=== PATIENT | male | born 1950 | race Caucasian/White ===

== ENCOUNTER 2017-09-04 06:05 | Day surgery (SDC) | payer MEDICARE ==
[~2017-09-04] VITALS: Ht 180.3 cm; Wt 125.2 kg
[~2017-09-04 06:05] MED LIST: FENO145T32 PO; FLUT1DIS3 INH; FURO40TA6 PO; GABA100C PO; HYDR50TA3 PO; LACT1CAP40 PO; LOSA1TAB19 PO; LOSA25TA5 PO; OMEP-110 PO; POTA99TA3 PO; PRAV40TA2 PO; RIVA20TA PO; SERT25TA PO; SOTA120T26 PO; TIOT18CA INH
[2017-09-04 06:59] VITALS: BP 110/77
[2017-09-04] MEDS ORDERED: LACTATED RINGERS 1,000 ML IV SCH (07:04)
[2017-09-04] MEDS ORDERED: LIDOCAINE-MPF 1%, 2ML ONE (07:10)
[2017-09-04] MEDS ORDERED: LIDOCAINE 1%, 2ML SQ PRN (07:30)
[2017-09-04] MEDS ORDERED: ALBUTEROL/IPRATROPIUM 2.5MG/0.5MG, 3 ML ONE (07:42)
[2017-09-04] MEDS ORDERED: PROPOFOL 10 MG/ML, 20ML ONE (07:43)
[2017-09-04] MEDS ORDERED: FENTANYL PF 100 MCG/2ML ONE (07:43)
[2017-09-04] MEDS ORDERED: MEPERIDINE/PF 25MG/0.5ML IVPush PRN (08:30)
[2017-09-04] MEDS ORDERED: ONDANSETRON 2MG/ML, 2ML IVPush PRN (08:30)
[2017-09-04] MEDS ORDERED: PROMETHAZINE 12.5 MG SUPP PR PRN (08:30)
[2017-09-04] MEDS ORDERED: FENTANYL PF 100 MCG/2ML IV PRN (08:30)
[2017-09-04] MEDS ORDERED: ALBUTEROL/IPRATROPIUM 2.5MG/0.5MG, 3 ML NPPB PRN (08:30)
[2017-09-04] MEDS ORDERED: hydrALAzine 20 MG/ML, 1ML IV PRN (08:30)
[2017-09-04] MEDS ORDERED: OXYcodone 5 MG/5 ML ORAL.SOL UDC PO PRN (08:30)
[2017-09-04] MEDS ORDERED: ACETAMINOPHEN 325 MG TABLET PO PRN (08:30)
== END 2017-09-04 09:25 ==
LOC: OUT 06:05
PROVIDERS: ATTEND Internal Medicine
DX: K31.7 Polyp of stomach and duodenum (principal); K29.60 Other gastritis without bleeding; K21.9 Gastro-esophageal reflux disease without esophagitis; K22.70 Barrett's esophagus without dysplasia; K44.9 Diaphragmatic hernia without obstruction or gangrene; I10 Essential (primary) hypertension; E78.5 Hyperlipidemia, unspecified; E66.01 Morbid (severe) obesity due to excess calories; G47.33 Obstructive sleep apnea (adult) (pediatric); J44.9 Chronic obstructive pulmonary disease, unspecified; Z86.010 Personal history of colon polyps; Z98.890 Other specified postprocedural states; Z90.49 Acquired absence of other specified parts of digestive tract; Z88.8 Allergy status to other drugs, medicaments and biological substances
CPT/HCPCS: 45380; 71045; 88305; 93005; 94640; J2704; J3010; J7120

== ENCOUNTER → 2017-11-29 | Outpatient (CLI) | payer MEDICARE | END | disposition home or self-care (01) | LOC: CFH 08:26 | PROVIDERS: ATTEND Internal Medicine Critical Care Medicine | DX: R94.2 Abnormal results of pulmonary function studies (principal); R59.1 Generalized enlarged lymph nodes | CPT/HCPCS: 71250 ==

== ENCOUNTER → 2017-12-20 | Outpatient (CLI) | payer MEDICARE ==
[~2017-12-20] MED LIST changes: +ALBU8.5H8 INH
[2017-12-20 08:55] LABS: ALANINE AMINOTRANSFERASE 21 U/L (12-78); ALBUMIN 3.6 g/dL (3.4-5.0); ANION GAP 5 mmol/L (5-15); CALCIUM 9.4 mg/dL (8.5-10.1); CHLORIDE 108 mmol/L (98-107); CREATININE 1.19 mg/dL (0.7-1.3)
[2017-12-20 08:58] LABS: ALKALINE PHOSPHATASE 43 U/L (45-117); BILIRUBIN,TOTAL 1.4 mg/dL (0.2-1.0); TOTAL PROTEIN 7.4 g/dL (6.4-8.2)
== END | disposition home or self-care (01) ==
LOC: STAR 07:44
PROVIDERS: ATTEND Internal Medicine Critical Care Medicine
DX: Z01.818 Encounter for other preprocedural examination (principal); R94.2 Abnormal results of pulmonary function studies
CPT/HCPCS: 36415; 80053

== ENCOUNTER → 2017-12-26 | Outpatient (CLI) | payer MEDICARE ==
[~2017-12-26] MED LIST changes: +OMNIPAQUE 350 MG/ML, 100ML BOTTLE ONE
== END | disposition home or self-care (01) ==
LOC: CFH 08:56
PROVIDERS: ATTEND Internal Medicine Critical Care Medicine
DX: J84.9 Interstitial pulmonary disease, unspecified (principal); R91.1 Solitary pulmonary nodule; R59.0 Localized enlarged lymph nodes; R94.2 Abnormal results of pulmonary function studies
CPT/HCPCS: 71260; Q9967

== ENCOUNTER 2017-12-27 08:01 | Day surgery (SDC) | payer MEDICARE ==
[~2017-12-27] VITALS: Ht 177.8 cm; Wt 118.0 kg
[~2017-12-27 08:01] MED LIST changes: -OMNIPAQUE 350 MG/ML, 100ML BOTTLE ONE
[2017-12-27] MEDS ORDERED: LACTATED RINGERS 1,000 ML IV SCH (08:20)
[2017-12-27 08:44] VITALS: BP 104/72
[2017-12-27] MEDS ORDERED: FENTANYL PF 250 MCG/5ML ONE (10:05)
[2017-12-27] MEDS ORDERED: HYDROmorphone 1 MG/ML, 1ML IV PRN (10:30)
[2017-12-27] MEDS ORDERED: ACETAMINOPHEN 325 MG TABLET PO PRN (10:30)
[2017-12-27] MEDS ORDERED: FENTANYL PF 100 MCG/2ML IV PRN (10:30)
[2017-12-27] MEDS ORDERED: OXYcodone 5 MG/5 ML ORAL.SOL UDC PO PRN (10:30)
[2017-12-27] MEDS ORDERED: MEPERIDINE/PF 25MG/0.5ML IVPush PRN (10:30)
[2017-12-27] MEDS ORDERED: ONDANSETRON ODT 8 MG PO PRN (10:30)
== END 2017-12-27 13:00 | disposition home or self-care (01) ==
LOC: OUT 08:01
PROVIDERS: ATTEND Internal Medicine Critical Care Medicine
DX: J98.4 Other disorders of lung (principal); J44.9 Chronic obstructive pulmonary disease, unspecified; G47.33 Obstructive sleep apnea (adult) (pediatric); I10 Essential (primary) hypertension; Z98.890 Other specified postprocedural states; Z88.8 Allergy status to other drugs, medicaments and biological substances
CPT/HCPCS: 31652; 88172; 88173; 88305; J3010; 31629

== ENCOUNTER → 2018-04-15 | Outpatient (CLI) | payer MEDICARE ==
[~2018-04-15] MED LIST changes: -LOSA25TA5 PO; +LOSA25TA6 PO
== END | disposition home or self-care (01) ==
LOC: CFH 08:11
PROVIDERS: ATTEND Internal Medicine Critical Care Medicine
DX: J84.9 Interstitial pulmonary disease, unspecified (principal); R91.1 Solitary pulmonary nodule
CPT/HCPCS: 71250

== ENCOUNTER 2018-04-22 06:58 | Day surgery (SDC) | payer MEDICARE ==
[~2018-04-22] VITALS: Ht 180.3 cm; Wt 123.1 kg
[2018-04-22] MEDS ORDERED: SODIUM CHLORIDE 0.9% 1,000 ML IV SCH (07:31)
[2018-04-22 07:33] VITALS: BP 122/79
[2018-04-22] MEDS ORDERED: MIDAZOLAM 1 MG/ML, 5ML ONE (09:10)
[2018-04-22] MEDS ORDERED: FENTANYL PF 100 MCG/2ML ONE ×2 (09:10)
[2018-04-22] MEDS ORDERED: FLUMAZENIL 0.1 MG/1 ML, 5ML ONE (09:10)
[2018-04-22] MEDS ORDERED: NALOXONE 1 MG/ML, 2ML ONE (09:11)
== END 2018-04-22 10:45 | disposition home or self-care (01) ==
LOC: OUT 06:58
PROVIDERS: ATTEND Nurse Practitioner Family
DX: J98.4 Other disorders of lung (principal); R91.1 Solitary pulmonary nodule; I48.91 Unspecified atrial fibrillation; I10 Essential (primary) hypertension; J44.9 Chronic obstructive pulmonary disease, unspecified; F19.90 Other psychoactive substance use, unspecified, uncomplicated
CPT/HCPCS: 32405; 77012; J2250; J3010; J7030; J2310

== ENCOUNTER → 2018-05-02 | Outpatient (CLI) | payer MEDICARE | END | disposition home or self-care (01) | LOC: PETCFH 13:01 | PROVIDERS: ATTEND Internal Medicine Critical Care Medicine | DX: R91.1 Solitary pulmonary nodule (principal) | CPT/HCPCS: 78815; A9552 ==

== ENCOUNTER → 2018-05-09 | Outpatient (CLI) | payer MEDICARE ==
[~2018-05-09] MED LIST changes: +GADOBUTROL 10 MMOL/10 ML PFS ONE
== END | disposition home or self-care (01) ==
LOC: RAD 08:35
PROVIDERS: ATTEND Internal Medicine Critical Care Medicine
DX: I67.82 Cerebral ischemia (principal); R91.1 Solitary pulmonary nodule
CPT/HCPCS: 70553; A9585

== ENCOUNTER 2018-05-28 08:00 | Inpatient (IN) | payer MEDICARE ==
[2018-05-27 11:09] LABS: BASOPHILS # (AUTO) 0.03 x10^3/uL (0-0.1); BASOPHILS % (AUTO) 1 % (0-1); EOSINOPHILS # (AUTO) 0.13 x10^3/uL (0-0.4); EOSINOPHILS % (AUTO) 2 % (1-7); LYMPHOCYTES # (AUTO) 1.19 x10^3/uL (1-3.4); LYMPHOCYTES % (AUTO) 20 % (22-44); MD NO; MEAN CORPUSCULAR HEMOGLOBIN 32.1 pg (27.5-34.5); MEAN CORPUSCULAR HGB CONC 33.4 g/dL (33.2-36.2); MEAN CORPUSCULAR VOLUME 96.1 fL (81-97); MEAN PLATELET VOLUME 8.7 fL (7.4-10.4); MONOCYTES # (AUTO) 0.66 x10^3/uL (0.2-0.8); MONOCYTES % (AUTO) 11 % (2-9); NEUTROPHILS # (AUTO) 4.02 x10^3/uL (1.8-6.8); NEUTROPHILS % (AUTO) 67 % (42-75); PLATELET COUNT 132 x10^3/uL (130-400); RED BLOOD COUNT 4.91 x10^6/uL (4.38-5.82); RED CELL DISTRIBUTION WIDTH 14.6 % (9.4-14.8)
[2018-05-27 11:20] LABS: ALANINE AMINOTRANSFERASE 19 U/L (12-78); ANION GAP 4 mmol/L (5-15); CALCIUM 9.3 mg/dL (8.5-10.1); CHLORIDE 107 mmol/L (98-107)
[2018-05-27 11:23] LABS: ALKALINE PHOSPHATASE 35 U/L (45-117); BILIRUBIN,TOTAL 1.8 mg/dL (0.2-1.0); CREATININE 1.26 mg/dL (0.7-1.3); TOTAL PROTEIN 7.5 g/dL (6.4-8.2)
[~2018-05-28] VITALS: Ht 180.3 cm; Wt 122.6 kg
[~2018-05-28 08:00] MED LIST changes: +BUPIVACAINE/PF-EPI 0.5% 1:200K ONE; +FLUT9.9S NS; -GADOBUTROL 10 MMOL/10 ML PFS ONE; +TOBR5DRO49 LEFT EAR
[2018-05-28] MEDS ORDERED: LACTATED RINGERS 1,000 ML IV SCH ×2 (08:21→12:01)
[2018-05-28] MEDS ORDERED: ACETAMINOPHEN 500 MG TABLET PO ONE (08:30)
[2018-05-28] MEDS ORDERED: GABAPENTIN 300 MG CAPSULE PO ONE (08:30)
[2018-05-28 08:44] VITALS: BP 129/69
[2018-05-28] MEDS ORDERED: FENTANYL PF 250 MCG/5ML ONE (10:17)
[2018-05-28] MEDS ORDERED: NEOSTIGMINE 1 MG/ML, 10ML ONE (10:18)
[2018-05-28] MEDS ORDERED: DEXAMETHASONE 4 MG/ML, 1ML ONE (10:18)
[2018-05-28] MEDS ORDERED: PROPOFOL 10 MG/ML, 20ML ONE (10:18)
[2018-05-28] MEDS ORDERED: ONDANSETRON 2MG/ML, 2ML ONE (10:18)
[2018-05-28] MEDS ORDERED: ROCURONIUM 10MG/ML,5ML ONE (10:18)
[2018-05-28] MEDS ORDERED: CEFAZOLIN 1,000 MG ONE ×2 (10:18→11:21)
[2018-05-28] MEDS ORDERED: GLYCOPYRROLATE 0.2MG/1ML, 5ML ONE (10:20)
[2018-05-28] MEDS ORDERED: FENTANYL PF 100 MCG/2ML IV PRN (11:30)
[2018-05-28] MEDS ORDERED: PROMETHAZINE 25 MG SUPP PR PRN (11:30)
[2018-05-28] MEDS ORDERED: OXYcodone 5 MG/5 ML ORAL.SOL UDC PO PRN (11:30)
[2018-05-28] MEDS ORDERED: LABETALOL 5MG/ML, 20ML IV PRN (11:30)
[2018-05-28] MEDS ORDERED: MEPERIDINE/PF 25MG/0.5ML IVPush PRN (11:30)
[2018-05-28] MEDS ORDERED: HYDROmorphone 1 MG/ML, 1ML IV PRN (11:30)
[2018-05-28] MEDS ORDERED: PROMETHAZINE 25 MG/ML, 1ML IV PRN (11:30)
[2018-05-28] MEDS ORDERED: PROMETHAZINE 12.5 MG SUPP PR PRN (11:30)
[2018-05-28] MEDS ORDERED: ONDANSETRON ODT 8 MG PO PRN (11:30)
[2018-05-28] MEDS ORDERED: MORPHINE SULFATE 4 MG/ML, 1ML IVPush PRN (11:30)
[2018-05-28] MEDS ORDERED: ONDANSETRON 2MG/ML, 2ML IV PRN (11:30)
[2018-05-28] MEDS ORDERED: hydrALAzine 20 MG/ML, 1ML IV PRN (11:30)
[2018-05-28] MEDS ORDERED: PROMETHAZINE 25 MG/ML, 1ML IM PRN ×2 (11:30)
[2018-05-28] MEDS ORDERED: SUGAMMADEX 200 MG/2 ML IVPush ONE (11:41)
[2018-05-28] MEDS ORDERED: FENTANYL PF 100 MCG/2ML ONE (12:00)
[2018-05-28] MEDS ORDERED: OXYcodone 5 MG/5 ML ORAL.SOL UDC ONE (12:29)
[2018-05-28] MEDS ORDERED: DIPHENHYDRAMINE 25 MG CAPSULE PO PRN (12:30)
[2018-05-28] MEDS ORDERED: FLUTICASONE NASAL SPRAY 16GM NAS PRN (12:30)
[2018-05-28] MEDS ORDERED: hydrALAzine 20 MG/ML, 1ML IVPush PRN (12:30)
[2018-05-28] MEDS: OMEPRAZOLE 20 MG CAPSULE.DR PO SCH (12:30)
[2018-05-28] MEDS ORDERED: DIPHENHYDRAMINE 50 MG/ML, 1ML IVPush PRN (12:30)
[2018-05-28] MEDS ORDERED: morphine SULFATE 10 MG/ML, 1ML IVPush PRN (12:30)
[2018-05-28] MEDS ORDERED: TOBRAMYCIN EACHEYE SCH (12:30)
[2018-05-28] MEDS: HYDROcodone/APAP 5/325 TABLET PO PRN ×2 (16:18→21:00)
[2018-05-28 19:41] VITALS: BP 105/56
[2018-05-28] MEDS: SOTALOL 120MG TABLET PO SCH (19:48)
[2018-05-28] MEDS ORDERED: TOBRAMYCIN OPHTH 5ML OTIC PRN (21:00)
[2018-05-28] MEDS ORDERED: PRAVASTATIN 40 MG TABLET PO SCH (21:00)
[2018-05-28 23:53] VITALS: BP 132/79
[2018-05-29] MEDS: HYDROcodone/APAP 5/325 TABLET PO PRN ×3 (01:08→12:03)
[2018-05-29 03:59] VITALS: BP 126/84
[2018-05-29 06:38] LABS: ANION GAP 7 mmol/L (5-15); CALCIUM 9.2 mg/dL (8.5-10.1); CHLORIDE 104 mmol/L (98-107)
[2018-05-29 06:41] VITALS: BP 143/79
[2018-05-29 06:41] LABS: CREATININE 1.16 mg/dL (0.7-1.3)
[2018-05-29 06:52] LABS: BASOPHILS # (AUTO) 0.04 x10^3/uL (0-0.1); BASOPHILS % (AUTO) 1 % (0-1); EOSINOPHILS # (AUTO) 0.15 x10^3/uL (0-0.4); EOSINOPHILS % (AUTO) 2 % (1-7); LYMPHOCYTES # (AUTO) 1.42 x10^3/uL (1-3.4); LYMPHOCYTES % (AUTO) 20 % (22-44); MD NO; MEAN CORPUSCULAR HEMOGLOBIN 31.6 pg (27.5-34.5); MEAN CORPUSCULAR HGB CONC 32.8 g/dL (33.2-36.2); MEAN CORPUSCULAR VOLUME 96.6 fL (81-97); MEAN PLATELET VOLUME 9.3 fL (7.4-10.4); MONOCYTES # (AUTO) 0.74 x10^3/uL (0.2-0.8); MONOCYTES % (AUTO) 10 % (2-9); NEUTROPHILS # (AUTO) 4.79 x10^3/uL (1.8-6.8); NEUTROPHILS % (AUTO) 67 % (42-75); PLATELET COUNT 127 x10^3/uL (130-400); RED BLOOD COUNT 5.07 x10^6/uL (4.38-5.82); RED CELL DISTRIBUTION WIDTH 15.1 % (9.4-14.8)
[2018-05-29] MEDS: SOTALOL 120MG TABLET PO SCH (07:45)
[2018-05-29] MEDS: OMEPRAZOLE 20 MG CAPSULE.DR PO SCH (07:53)
[2018-05-29] MEDS ORDERED: ENOXAPARIN 40 MG/0.4 ML SQ SCH (09:00)
[2018-05-29] MEDS ORDERED: FUROSEMIDE 40 MG TABLET PO SCH (09:00)
[2018-05-29] MEDS ORDERED: LOSARTAN 25MG TABLET PO SCH (09:00)
[2018-05-29] MEDS ORDERED: TEMPLATE NON-FORMULARY MED. (Potassium Gluconate** 595 MG) PO SCH (09:00)
[2018-05-29] MEDS ORDERED: FENOFIBRATE 145 MG TABLET PO SCH (09:00)
[2018-05-29 13:35] VITALS: BP 147/84
[2018-05-29] MEDS ORDERED: HYDR-3240 PO (14:17)
== END 2018-05-29 14:30 | disposition home or self-care (01) | DRG 826 ==
LOC: ORIP 08:00 → 4NOR 13:38 → DCLOUNGE 05-29 12:10
PROVIDERS: ADMIT Thoracic Surgery (Cardiothoracic Vascular Surgery); ATTEND Thoracic Surgery (Cardiothoracic Vascular Surgery)
PROC: 5A09357 Assistance with Respiratory Ventilation, Less than 24 Consecutive Hours, Continuous Positive Airway Pressure (ICD-10-PCS; 2018-05-28)
PROC: 0BBF4ZZ Excision of Right Lower Lung Lobe, Percutaneous Endoscopic Approach (ICD-10-PCS; principal; 2018-05-28 10:30)
DX: C7A.8 Other malignant neuroendocrine tumors (principal); J96.21 Acute and chronic respiratory failure with hypoxia; I48.92 Unspecified atrial flutter; F17.200 Nicotine dependence, unspecified, uncomplicated; I48.91 Unspecified atrial fibrillation; K21.9 Gastro-esophageal reflux disease without esophagitis; I11.9 Hypertensive heart disease without heart failure; G47.30 Sleep apnea, unspecified; E78.00 Pure hypercholesterolemia, unspecified; Z90.49 Acquired absence of other specified parts of digestive tract; Z98.52 Vasectomy status; Z88.8 Allergy status to other drugs, medicaments and biological substances; Z82.3 Family history of stroke; Z82.49 Family history of ischemic heart disease and other diseases of the circulatory system
CPT/HCPCS: 36415; 71045; 80048; 80053; 85025; 86850; 86900; 88309; 88341; 88342; 88360; 93005; C1729; G0378; J0690; J1100; J1650; J2405; J2704; J2710; J3010; J3490; J7120

== ENCOUNTER 2018-12-10 09:41 | Outpatient (CLI) | payer MEDICARE ==
[~2018-12-10 09:41] MED LIST changes: -BUPIVACAINE/PF-EPI 0.5% 1:200K ONE; +HYDR-3240 PO; +LOSA25TA25 PO; -LOSA25TA6 PO
== END 2018-12-10 23:59 | disposition home or self-care (01) ==
LOC: PETCFH 09:41
PROVIDERS: ATTEND Internal Medicine Medical Oncology
DX: C34.90 Malignant neoplasm of unspecified part of unspecified bronchus or lung (principal); R59.0 Localized enlarged lymph nodes
CPT/HCPCS: 78815; A9552

== ENCOUNTER → 2018-12-24 | Outpatient (CLI) | payer MEDICARE | END | disposition home or self-care (01) | LOC: ROC 08:08 | PROVIDERS: ATTEND Radiology Radiation Oncology | DX: C34.91 Malignant neoplasm of unspecified part of right bronchus or lung (principal) | CPT/HCPCS: G0463 ==

== ENCOUNTER 2019-01-16 09:54 | Outpatient (CLI) | payer MEDICARE ==
[2019-01-16 11:30] LABS: CHLORIDE 108 mmol/L (98-107)
[2019-01-16 11:38] LABS: ALANINE AMINOTRANSFERASE 21 U/L (12-78); ALKALINE PHOSPHATASE 47 U/L (45-117); ANION GAP 3 mmol/L (5-15); CALCIUM 9.8 mg/dL (8.5-10.1); CREATININE 1.22 mg/dL (0.7-1.3); TOTAL PROTEIN 7.5 g/dL (6.4-8.2)
[2019-01-16] MEDS ORDERED: CIPR500T3 PO (13:27)
[2019-01-16] MEDS ORDERED: SERT50TA28 PO (13:27)
== END 2019-01-16 23:59 | disposition home or self-care (01) ==
LOC: STAR 09:54
PROVIDERS: ATTEND Internal Medicine
DX: Z01.818 Encounter for other preprocedural examination (principal); C7A.1 Malignant poorly differentiated neuroendocrine tumors; Z88.8 Allergy status to other drugs, medicaments and biological substances; I48.91 Unspecified atrial fibrillation; I45.10 Unspecified right bundle-branch block
CPT/HCPCS: 36415; 80053; 93005

== ENCOUNTER 2019-01-21 07:50 | Day surgery (SDC) | payer MEDICARE ==
[~2019-01-21] VITALS: Ht 180.3 cm; Wt 113.6 kg
[2019-01-21 09:03] VITALS: BP 94/68
== END 2019-01-21 14:00 | disposition home or self-care (01) ==
LOC: OUT 07:50
PROVIDERS: ATTEND Internal Medicine
DX: C7A.1 Malignant poorly differentiated neuroendocrine tumors (principal); I48.2 Chronic atrial fibrillation; G47.33 Obstructive sleep apnea (adult) (pediatric); J44.9 Chronic obstructive pulmonary disease, unspecified; I10 Essential (primary) hypertension; Z88.1 Allergy status to other antibiotic agents; Z88.8 Allergy status to other drugs, medicaments and biological substances; Z79.01 Long term (current) use of anticoagulants
CPT/HCPCS: 31652; 71045; 88172; 88173; 88305; 88341; 88342; 88360; J0330; J2370; J2405; J2704; J3010; J7120; 31625

== ENCOUNTER 2019-01-26 14:32 | Outpatient (CLI) | payer MEDICARE | END 2019-01-26 23:59 | disposition home or self-care (01) | LOC: CFH 14:32 | PROVIDERS: ATTEND Radiology Radiation Oncology | DX: G31.9 Degenerative disease of nervous system, unspecified (principal); C34.90 Malignant neoplasm of unspecified part of unspecified bronchus or lung | CPT/HCPCS: 70553; A9585 ==

== ENCOUNTER → 2019-05-15 | Outpatient (CLI) | payer MEDICARE ==
[~2019-05-15] MED LIST changes: +CIPR500T3 PO; +SERT50TA28 PO
== END | disposition home or self-care (01) ==
LOC: CFH 08:21
PROVIDERS: ATTEND Radiology Radiation Oncology
DX: J98.4 Other disorders of lung (principal); R91.8 Other nonspecific abnormal finding of lung field; R59.9 Enlarged lymph nodes, unspecified; J44.9 Chronic obstructive pulmonary disease, unspecified; Z85.118 Personal history of other malignant neoplasm of bronchus and lung; Z87.891 Personal history of nicotine dependence
CPT/HCPCS: 71250

== ENCOUNTER → 2019-05-20 | Outpatient (CLI) | payer MEDICARE | END | disposition home or self-care (01) | LOC: ROC 09:11 | PROVIDERS: ATTEND Radiology Radiation Oncology | DX: C34.31 Malignant neoplasm of lower lobe, right bronchus or lung (principal); F12.10 Cannabis abuse, uncomplicated; J44.9 Chronic obstructive pulmonary disease, unspecified; Z87.891 Personal history of nicotine dependence | CPT/HCPCS: G0463 ==

== ENCOUNTER → 2019-05-21 | Outpatient (CLI) | payer MEDICARE | END | disposition home or self-care (01) | LOC: PETCFH 10:16 | PROVIDERS: ATTEND Radiology Radiation Oncology | DX: C79.51 Secondary malignant neoplasm of bone (principal); C77.9 Secondary and unspecified malignant neoplasm of lymph node, unspecified; C34.31 Malignant neoplasm of lower lobe, right bronchus or lung; R91.8 Other nonspecific abnormal finding of lung field; J44.9 Chronic obstructive pulmonary disease, unspecified; J90 Pleural effusion, not elsewhere classified; I25.10 Atherosclerotic heart disease of native coronary artery without angina pectoris; Z87.891 Personal history of nicotine dependence; F12.10 Cannabis abuse, uncomplicated | CPT/HCPCS: 78815; A9552 ==

== ENCOUNTER → 2019-05-22 | Outpatient (CLI) | payer MEDICARE ==
[~2019-05-22] MED LIST changes: +GADOTERATE 10 MMOL/20 ML VIAL ONE
== END | disposition home or self-care (01) ==
LOC: CFH 09:52
PROVIDERS: ATTEND Radiology Radiation Oncology
DX: C34.31 Malignant neoplasm of lower lobe, right bronchus or lung (principal); I10 Essential (primary) hypertension; G31.89 Other specified degenerative diseases of nervous system
CPT/HCPCS: 70553; A9575

== ENCOUNTER 2019-07-09 14:01 | Outpatient (CLI) | payer MEDICARE ==
[~2019-07-09 14:01] MED LIST changes: -GADOTERATE 10 MMOL/20 ML VIAL ONE
[2019-07-09] MEDS ORDERED: LIDOCAINE 1%, 10ML ONE (14:08)
== END 2019-07-09 23:59 | disposition home or self-care (01) ==
LOC: RAD 14:01
PROVIDERS: ATTEND Internal Medicine Critical Care Medicine
DX: J90 Pleural effusion, not elsewhere classified (principal); C79.89 Secondary malignant neoplasm of other specified sites; C80.1 Malignant (primary) neoplasm, unspecified
CPT/HCPCS: 32555; 88112; 88305; 88341; 88342

== ENCOUNTER 2019-07-22 11:36 | Inpatient (IN) | payer MEDICARE ==
[~2019-07-22] VITALS: Ht 182.9 cm; Wt 110.8 kg
[2019-07-22] MEDS ORDERED: ALBUTEROL/IPRATROPIUM 2.5MG/0.5MG, 3 ML NPPB ONE (12:30)
[2019-07-22] MEDS ORDERED: ALBUTEROL/IPRATROPIUM 2.5MG/0.5MG, 3 ML ONE (12:39)
[2019-07-22 12:46] LABS: BASOPHILS # (AUTO) 0.04 x10^3/uL (0-0.1); BASOPHILS % (AUTO) 1 % (0-1); EOSINOPHILS # (AUTO) 0.33 x10^3/uL (0-0.4); EOSINOPHILS % (AUTO) 6 % (1-7); LYMPHOCYTES # (AUTO) 0.66 x10^3/uL (1-3.4); LYMPHOCYTES % (AUTO) 11 % (22-44); MD NO; MEAN CORPUSCULAR HEMOGLOBIN 30.4 pg (27.5-34.5); MEAN PLATELET VOLUME 7.8 fL (7.4-10.4); MONOCYTES # (AUTO) 0.59 x10^3/uL (0.2-0.8); MONOCYTES % (AUTO) 10 % (2-9); NEUTROPHILS # (AUTO) 4.31 x10^3/uL (1.8-6.8); NEUTROPHILS % (AUTO) 73 % (42-75); PLATELET COUNT 141 x10^3/uL (130-400); RED BLOOD COUNT 3.84 x10^6/uL (4.38-5.82); RED CELL DISTRIBUTION WIDTH 16.4 % (9.4-14.8)
[2019-07-22 12:57] LABS: ALANINE AMINOTRANSFERASE 25 U/L (12-78); ALBUMIN 2.9 g/dL (3.4-5.0); ANION GAP 2 mmol/L (5-15); CALCIUM 10.1 mg/dL (8.5-10.1); CHLORIDE 103 mmol/L (98-107); CREATININE 1.13 mg/dL (0.7-1.3)
[2019-07-22 13:01] LABS: ALKALINE PHOSPHATASE 102 U/L (45-117); BILIRUBIN,TOTAL 0.9 mg/dL (0.2-1.0); TOTAL PROTEIN 6.9 g/dL (6.4-8.2); TROPONIN I < 0.015 ng/mL (0.000-0.045)
[2019-07-22] MEDS ORDERED: PIPERACILLIN/TAZO/PMX 3.375GM 50 ML IV ONE (13:30)
[2019-07-22] MEDS ORDERED: TEMPLATE NON-FORMULARY MED. (Fluticasone Propionate (Flonase Allergy Relief) 1 SPRAY) NS SCH (13:30)
[2019-07-22] MEDS ORDERED: LEVOFLOXACIN/PMX 750MG/150ML 150 ML IV SCH (13:30)
[2019-07-22] MEDS ORDERED: VANCOMYCIN PER PHARMACY MC PRN (13:30)
[2019-07-22] MEDS ORDERED: LIDOCAINE 1%, 10ML ONE (13:40)
[2019-07-22] MEDS ORDERED: OXYC5TAB2 PO (13:54)
[2019-07-22] MEDS ORDERED: METO-93 PO (13:54)
[2019-07-22] MEDS ORDERED: DOFE250C PO (13:54)
[2019-07-22] MEDS ORDERED: NIVO40VI IV (13:54)
[2019-07-22] MEDS ORDERED: METH5TAB2 PO (13:54)
[2019-07-22] MEDS ORDERED: SERT100T32 PO (13:54)
[2019-07-22] MEDS ORDERED: IPIL50VI IV (13:54)
[2019-07-22] MEDS ORDERED: POTA20TA14 PO (13:54)
[2019-07-22] MEDS ORDERED: PREG50CA PO (13:54)
--- NOTE | 2019-07-22 13:55 | NUR ---
MED REC COMPLETED WELL POSSIBLE. PT TAKEN TO RADIOLOGY AT THIS TIME.
[2019-07-22] MEDS ORDERED: ACETAMINOPHEN 325 MG TABLET PO PRN (14:00)
[2019-07-22] MEDS ORDERED: ONDANSETRON ODT 4 MG PO PRN (14:00)
[2019-07-22] MEDS ORDERED: morphine SULFATE 10 MG/ML, 1ML IVPush PRN (14:00)
[2019-07-22] MEDS ORDERED: hydrALAzine 20 MG/ML, 1ML IVPush PRN (14:00)
[2019-07-22] MEDS ORDERED: ONDANSETRON 2MG/ML, 2ML IVPush PRN (14:00)
[2019-07-22] MEDS ORDERED: BACLOFEN 10 MG TABLET PO PRN (14:00)
[2019-07-22] MEDS ORDERED: NITROGLYCERIN 0.4 MG BOTTLE (25 TABS) SL PRN (14:00)
--- NOTE | 2019-07-22 15:04 | NUR ---
RECEIVED REPORT FROM DHRUV. PT UPRIGHT ON GURNEY AWAKE & COMFORTABLE RESPONDS APPROP TO STAFF, NAD, COMFORT MEASURES PROVIDED, AT BS, CALL LIGHT WITHIN REACH.
--- NOTE | 2019-07-22 16:00 | NUR ---
PT REMAINS UPRIGHT ON GURNEY AWAKE & COMFORTABLE RESPONDS APPROP TO STAFF, NAD, COMFORT MEASURES PROVIDED, CALL LIGHT WITHIN REACH.
--- NOTE | 2019-07-22 16:02 | NUR ---
Moreno strauss in [facility] - 07/22/19 at 1603 by HUGH PT UPRIGHT ON GURNEY AWAKE & COMFORTABLE AT REST, RESPONDS APPROP TO STAFF, NAD, COMFORT MEASURES PROVIDED, FAMILY AT BS, CALL LIGHT WITHIN REACH.
[2019-07-22] MEDS ORDERED: FUROSEMIDE 40 MG/4 ML ONE (16:08)
[2019-07-22] MEDS ORDERED: LEVOFLOXACIN/PMX 750MG/150ML 150 ML ONE (16:09)
[2019-07-22] MEDS ORDERED: OXYcodone IR 5MG TABLET ONE (16:09)
[2019-07-22] MEDS: OXYcodone IR 5MG TABLET PO PRN ×2 (16:13→20:47)
[2019-07-22] MEDS: FUROSEMIDE 40 MG/4 ML IV SCH (16:14)
--- NOTE | 2019-07-22 16:38 | NUR ---
MEAL TRAY GIVEN
--- NOTE | 2019-07-22 16:45 | NUR ---
URINE OUTPUT 550ML
--- NOTE | 2019-07-22 17:02 | NUR ---
PT REMAINS UPRIGHT ON GURNEY AWAKE & MORE COMFORTABLE AFTER MED, RESPONDS APPROP TO STAFF, NAD, COMFORT MEASURES PROVIDED, AT BS, CALL LIGHT WITHIN REACH.
--- NOTE | 2019-07-22 17:02 | NUR ---
(PREVIOUS NOTE CHARTED UNDER WRONG USER): PT REMAINS UPRIGHT ON GURNEY AWAKE & MORE COMFORTABLE AFTER MED, RESPONDS APPROP TO STAFF, NAD, COMFORT MEASURES PROVIDED, AT BS, CALL LIGHT WITHIN REACH.
--- NOTE | 2019-07-22 17:10 | NUR ---
URINE OUTPUT 250ML Addendum: 07/22/19 at 1753 by HUGH URINE OUTPUT 200ML
--- NOTE | 2019-07-22 17:52 | NUR ---
URINE OUTPUT 250ML
--- NOTE | 2019-07-22 18:16 | NUR ---
Pt to be admitted to [facility], room 406. Report called to Irina.
[2019-07-22] MEDS ORDERED: FLUTICASONE NASAL SPRAY 16GM NAS PRN (19:30)
[2019-07-22 20:00] VITALS: BP 116/79
[2019-07-22] MEDS: PREGABALIN 25 MG CAPSULE PO SCH (21:46)
[2019-07-22] MEDS: METHADONE 5 MG TABLET PO SCH (21:46)
[2019-07-22] MEDS: DOFETILIDE 125 MCG CAPSULE PO SCH (21:47)
[2019-07-22] MEDS: RIVAROXABAN 20 MG TABLET PO SCH (21:47)
[2019-07-22] MEDS: PRAVASTATIN 40 MG TABLET PO SCH (21:47)
[2019-07-22] MEDS: ALBUTEROL/IPRATROPIUM 2.5MG/0.5MG, 3 ML NPPB SCH (23:05)
[2019-07-23 01:08] VITALS: BP 96/60
[2019-07-23 01:16] VITALS: BP 100/63
[2019-07-23] MEDS: OXYcodone IR 5MG TABLET PO PRN ×3 (02:34→16:09)
[2019-07-23 05:18] LABS: BASOPHILS # (AUTO) 0.03 x10^3/uL (0-0.1); BASOPHILS % (AUTO) 1 % (0-1); EOSINOPHILS # (AUTO) 0.26 x10^3/uL (0-0.4); EOSINOPHILS % (AUTO) 5 % (1-7); LYMPHOCYTES # (AUTO) 0.74 x10^3/uL (1-3.4); LYMPHOCYTES % (AUTO) 13 % (22-44); MD NO; MEAN CORPUSCULAR HEMOGLOBIN 30.2 pg (27.5-34.5); MEAN CORPUSCULAR HGB CONC 32.3 g/dL (33.2-36.2); MEAN CORPUSCULAR VOLUME 93.6 fL (81-97); MEAN PLATELET VOLUME 8.3 fL (7.4-10.4); MONOCYTES # (AUTO) 0.65 x10^3/uL (0.2-0.8); MONOCYTES % (AUTO) 12 % (2-9); NEUTROPHILS # (AUTO) 3.95 x10^3/uL (1.8-6.8); NEUTROPHILS % (AUTO) 70 % (42-75); PLATELET COUNT 121 x10^3/uL (130-400); RED BLOOD COUNT 3.55 x10^6/uL (4.38-5.82); RED CELL DISTRIBUTION WIDTH 17.3 % (9.4-14.8)
[2019-07-23 05:29] LABS: ANION GAP 4 mmol/L (5-15); CALCIUM 9.8 mg/dL (8.5-10.1); CHLORIDE 100 mmol/L (98-107); CREATININE 1.02 mg/dL (0.7-1.3)
[2019-07-23 07:04] VITALS: BP 120/80
[2019-07-23] MEDS: FUROSEMIDE 40 MG/4 ML IV SCH ×2 (08:18→16:10)
[2019-07-23] MEDS: OMEPRAZOLE 20 MG CAPSULE.DR PO SCH (08:18)
[2019-07-23] MEDS: METHADONE 5 MG TABLET PO SCH ×2 (08:18→20:48)
[2019-07-23] MEDS: PREGABALIN 25 MG CAPSULE PO SCH ×2 (08:18→20:48)
[2019-07-23] MEDS ORDERED: SERTRALINE 100MG TABLET PO SCH (09:00)
[2019-07-23] MEDS ORDERED: SERTRALINE 50MG TABLET PO SCH (09:00)
[2019-07-23] MEDS: DOFETILIDE 125 MCG CAPSULE PO SCH ×2 (09:21→19:48)
[2019-07-23] MEDS: ALBUTEROL/IPRATROPIUM 2.5MG/0.5MG, 3 ML NPPB SCH ×2 (10:14→19:41)
[2019-07-23 12:22] VITALS: BP 99/64
[2019-07-23] MEDS: AMPICILLIN/SULBACTAM 3 GM in SODIUM CHLORIDE 0.9% 100 ML IV SCH ×2 (15:45→21:45)
[2019-07-23 19:27] VITALS: BP 105/71
[2019-07-23] MEDS: PRAVASTATIN 40 MG TABLET PO SCH (20:48)
[2019-07-23] MEDS: SERTRALINE 100MG TABLET PO SCH (20:48)
[2019-07-23] MEDS: RIVAROXABAN 20 MG TABLET PO SCH (20:48)
[2019-07-24 00:26] VITALS: BP 110/71
[2019-07-24] MEDS: OXYcodone IR 5MG TABLET PO PRN ×4 (00:53→23:15)
[2019-07-24] MEDS: AMPICILLIN/SULBACTAM 3 GM in SODIUM CHLORIDE 0.9% 100 ML IV SCH ×4 (03:19→21:50)
[2019-07-24 06:15] LABS: BASOPHILS # (AUTO) 0.02 x10^3/uL (0-0.1); BASOPHILS % (AUTO) 0 % (0-1); EOSINOPHILS # (AUTO) 0.31 x10^3/uL (0-0.4); EOSINOPHILS % (AUTO) 7 % (1-7); LYMPHOCYTES # (AUTO) 0.67 x10^3/uL (1-3.4); LYMPHOCYTES % (AUTO) 14 % (22-44); MD NO; MEAN CORPUSCULAR HEMOGLOBIN 30.1 pg (27.5-34.5); MEAN CORPUSCULAR VOLUME 94.2 fL (81-97); MONOCYTES # (AUTO) 0.54 x10^3/uL (0.2-0.8); MONOCYTES % (AUTO) 11 % (2-9); NEUTROPHILS # (AUTO) 3.22 x10^3/uL (1.8-6.8); NEUTROPHILS % (AUTO) 68 % (42-75); PLATELET COUNT 115 x10^3/uL (130-400); RED BLOOD COUNT 3.81 x10^6/uL (4.38-5.82); RED CELL DISTRIBUTION WIDTH 16.7 % (9.4-14.8)
[2019-07-24 06:26] LABS: CHLORIDE 102 mmol/L (98-107)
[2019-07-24 06:39] LABS: CALCIUM 9.4 mg/dL (8.5-10.1); CREATININE 0.78 mg/dL (0.7-1.3)
[2019-07-24 06:50] LABS: ANION GAP 2 mmol/L (5-15)
[2019-07-24] MEDS: PREGABALIN 25 MG CAPSULE PO SCH ×2 (07:47→21:50)
[2019-07-24] MEDS: OMEPRAZOLE 20 MG CAPSULE.DR PO SCH (07:47)
[2019-07-24] MEDS: FUROSEMIDE 40 MG/4 ML IV SCH ×2 (07:47→17:16)
[2019-07-24] MEDS: METHADONE 5 MG TABLET PO SCH ×2 (07:47→21:50)
[2019-07-24] MEDS: ALBUTEROL/IPRATROPIUM 2.5MG/0.5MG, 3 ML NPPB SCH ×2 (08:00→19:21)
[2019-07-24 09:10] VITALS: BP 102/66
[2019-07-24] MEDS: DOFETILIDE 125 MCG CAPSULE PO SCH ×2 (10:00→21:55)
[2019-07-24 13:58] VITALS: BP 110/68
[2019-07-24] MEDS ORDERED: POLYETHYLENE GLYCOL 17 GM PACKET PO PRN (14:30)
[2019-07-24] MEDS ORDERED: MAGNESIUM SULFATE PMX 2GM/50ML 50 ML IV ONE (15:00)
[2019-07-24 19:52] VITALS: BP 112/73
[2019-07-24] MEDS: SERTRALINE 100MG TABLET PO SCH (21:50)
[2019-07-24] MEDS: RIVAROXABAN 20 MG TABLET PO SCH (21:50)
[2019-07-24] MEDS: PRAVASTATIN 40 MG TABLET PO SCH (21:50)
[2019-07-25 01:53] VITALS: BP 116/78
[2019-07-25] MEDS: AMPICILLIN/SULBACTAM 3 GM in SODIUM CHLORIDE 0.9% 100 ML IV SCH ×2 (03:32→10:18)
[2019-07-25] MEDS: OXYcodone IR 5MG TABLET PO PRN (04:23)
[2019-07-25 05:17] LABS: ANION GAP 5 mmol/L (5-15); CALCIUM 9.2 mg/dL (8.5-10.1); CHLORIDE 97 mmol/L (98-107)
[2019-07-25 05:19] LABS: CREATININE 0.81 mg/dL (0.7-1.3)
[2019-07-25 05:34] LABS: MEAN CORPUSCULAR HEMOGLOBIN 30.1 pg (27.5-34.5); MEAN CORPUSCULAR HGB CONC 31.7 g/dL (33.2-36.2); MEAN CORPUSCULAR VOLUME 94.8 fL (81-97); MEAN PLATELET VOLUME 8.1 fL (7.4-10.4); PLATELET COUNT 111 x10^3/uL (130-400); RED BLOOD COUNT 3.83 x10^6/uL (4.38-5.82); RED CELL DISTRIBUTION WIDTH 16.8 % (9.4-14.8)
[2019-07-25 06:06] LABS: BASOPHILS # (AUTO) 0.04 x10^3/uL (0-0.1); BASOPHILS % (AUTO) 1 % (0-1); EOSINOPHILS # (AUTO) 0.33 x10^3/uL (0-0.4); EOSINOPHILS % (AUTO) 6 % (1-7); LYMPHOCYTES # (AUTO) 0.75 x10^3/uL (1-3.4); LYMPHOCYTES % (AUTO) 14 % (22-44); MD SCAN; MONOCYTES # (AUTO) 0.53 x10^3/uL (0.2-0.8); MONOCYTES % (AUTO) 10 % (2-9); NEUTROPHILS # (AUTO) 3.72 x10^3/uL (1.8-6.8); NEUTROPHILS % (AUTO) 69 % (42-75)
[2019-07-25] MEDS ORDERED: MAGNESIUM SULFATE PMX 2GM/50ML 50 ML IV ONE (07:00)
[2019-07-25] MEDS: OMEPRAZOLE 20 MG CAPSULE.DR PO SCH (07:15)
[2019-07-25 07:50] VITALS: BP 112/77
[2019-07-25] MEDS ORDERED: AMOX1TAB64 PO (07:54)
[2019-07-25] MEDS: FUROSEMIDE 40 MG/4 ML IV SCH (08:57)
[2019-07-25] MEDS: DOFETILIDE 125 MCG CAPSULE PO SCH (08:58)
[2019-07-25] MEDS: PREGABALIN 25 MG CAPSULE PO SCH (08:58)
[2019-07-25] MEDS: METHADONE 5 MG TABLET PO SCH (08:58)
[2019-07-25] MEDS: ALBUTEROL/IPRATROPIUM 2.5MG/0.5MG, 3 ML NPPB SCH (09:25)
[2019-07-30] MEDS ORDERED: MAGN300C PO (11:53)
[2019-07-30] MEDS ORDERED: CBD OIL SL (11:54)
== END 2019-07-25 11:50 | disposition home or self-care (01) | DRG 193 ==
LOC: ED 13:00 → EDIP 13:01 → ED 13:26 → 4WST 18:50 → DCLOUNGE 07-25 11:43
PROVIDERS: ADMIT Internal Medicine; ATTEND Internal Medicine
PROC: 0W993ZZ Drainage of Right Pleural Cavity, Percutaneous Approach (ICD-10-PCS; principal; 2019-07-22)
DX: J18.9 Pneumonia, unspecified organism (principal); J96.21 Acute and chronic respiratory failure with hypoxia; F11.20 Opioid dependence, uncomplicated; D68.69 Other thrombophilia; C7A.8 Other malignant neuroendocrine tumors; I48.91 Unspecified atrial fibrillation; F12.90 Cannabis use, unspecified, uncomplicated; G47.33 Obstructive sleep apnea (adult) (pediatric); G89.29 Other chronic pain; M79.89 Other specified soft tissue disorders; R59.0 Localized enlarged lymph nodes; J44.9 Chronic obstructive pulmonary disease, unspecified; I50.9 Heart failure, unspecified; Z87.891 Personal history of nicotine dependence; Z82.3 Family history of stroke; Z82.5 Family history of asthma and other chronic lower respiratory diseases; Z85.118 Personal history of other malignant neoplasm of bronchus and lung
CPT/HCPCS: 32555; 36415; 71045; 71250; 80048; 80053; 82042; 83615; 83735; 83880; 83986; 84100; 84145; 84157; 84484; 85025; 87040; 87070; 87205; 88112; 88305; 88341; 88342; 89051; 93005; 94640; 96374; G0378; J0295; J1940; J1956; J7620; J3475